=== PATIENT | male | born 1945 | race Caucasian/White ===

== ENCOUNTER 2017-07-29 08:00 | Outpatient (CLI) | payer MEDICARE ==
[2017-07-29 15:35] LABS: BASOPHILS % (AUTO) 0.6 %; EOSINOPHILS # (AUTO) 0.2 10^3/uL (0.0-0.7); HCT - HEMATOCRIT 42.6 % (42.0-52.0); HGB - HEMOGLOBIN 15.1 g/dL (14.0-18.0); LYMPHOCYTES # (AUTO) 2.5 10^3/uL (1.5-3.5); LYMPHOCYTES % (AUTO) 36.9 %; MEAN CORPUSCULAR HGB CONC 35.4 g/dL (32.0-36.0); MEAN CORPUSCULAR VOLUME 98.9 fL (80.0-94.0); MEAN PLATELET VOLUME 9.2 fL (7.4-11.4); MONOCYTES # (AUTO) 0.8 10^3/uL (0.0-1.0); MONOCYTES % (AUTO) 11.8 %; NEUTROPHILS # (AUTO) 3.2 10^3/uL (1.5-6.6); NEUTROPHILS % (AUTO) 47.7 %; NUCLEATED RED BLOOD CELLS AUTO 0.1 /100WBC; RED CELL DISTRIBUTION WIDTH 12.7 % (12.0-15.0); UNCORRECTED WHITE BLOOD COUNT 6.7 x10^3/uL; WHITE BLOOD COUNT 6.7 x10^3/uL (4.8-10.8)
[2017-07-29 15:42] LABS: ALBUMIN/GLOBULIN RATIO 1.6 (1.0-2.2); BILIRUBIN,TOTAL 1.3 mg/dL (0.2-1.0); BUN - BLOOD UREA NITROGEN 20 mg/dL (6-20); CALCIUM 9.4 mg/dL (8.5-10.3); CARBON DIOXIDE - CO2 29 mmol/L (21-32); CHLORIDE 95 mmol/L (101-111); CHOL/HDL RATIO 7.1 (<5.0); CHOLESTEROL 170 mg/dL; CREATININE 0.9 mg/dL (0.6-1.2); GFR - MDRD 83 (>89); GLUCOSE 164 mg/dL (70-100); HDL CHOLESTEROL 24 mg/dL; POTASSIUM 3.9 mmol/L (3.5-5.0); SODIUM 136 mmol/L (135-145); TOTAL PROTEIN 7.7 g/dL (6.7-8.2); TRIGLYCERIDES 486 mg/dL
[2017-07-29 16:16] LABS: LDL CHOLESTEROL,DIRECT 74 mg/dL
[2017-07-29 16:50] LABS: HEMOGLOBIN A1C 0.75 g/dL
== END 2017-07-29 08:01 | disposition home or self-care (01) ==
LOC: LAB.R 08:00
PROVIDERS: ATTEND Physician Assistant Medical
DX: E11.9 Type 2 diabetes mellitus without complications (principal); Z79.899 Other long term (current) drug therapy; I10 Essential (primary) hypertension; Z12.5 Encounter for screening for malignant neoplasm of prostate; G25.81 Restless legs syndrome; E78.2 Mixed hyperlipidemia
CPT/HCPCS: 80053; 80061; 83036; 83721; 85025; G0103; 84153

== ENCOUNTER 2017-08-29 09:06 | Outpatient (CLI) | payer MEDICARE | END 2017-08-29 09:07 | disposition home or self-care (01) | LOC: LAB 09:06 | PROVIDERS: ATTEND Physician Assistant Medical | DX: I10 Essential (primary) hypertension (principal); Z79.899 Other long term (current) drug therapy; G25.81 Restless legs syndrome | CPT/HCPCS: 84443 ==

== ENCOUNTER 2017-11-27 09:00 | Outpatient (CLI) | payer MEDICARE ==
[2017-11-27 13:20] LABS: ALBUMIN 4.2 g/dL (3.2-5.5); ALBUMIN/GLOBULIN RATIO 1.4 (1.0-2.2); ALKALINE PHOSPHATASE 31 IU/L (42-121); ALT ALANINE AMINOTRANSFERASE 99 IU/L (10-60); AST ASPARTATE AMINOTRANSFERASE 47 IU/L (10-42); BILIRUBIN,TOTAL 0.9 mg/dL (0.2-1.0); BUN - BLOOD UREA NITROGEN 17 mg/dL (6-20); CALCIUM 9.1 mg/dL (8.5-10.3); CARBON DIOXIDE - CO2 25 mmol/L (21-32); CHLORIDE 98 mmol/L (101-111); CHOL/HDL RATIO 7.1 (<5.0); CHOLESTEROL 163 mg/dL; GFR - MDRD 74 (>89); GLUCOSE 191 mg/dL (70-100); HDL CHOLESTEROL 23 mg/dL; SODIUM 135 mmol/L (135-145); TOTAL PROTEIN 7.3 g/dL (6.7-8.2)
[2017-11-27 13:31] LABS: HB2 TOTAL 15.8 g/dL; HEMOGLOBIN A1C 0.93 g/dL; HEMOGLOBIN A1C % 7.5 % (4.6-6.2)
[2017-11-27 14:00] LABS: LDL CHOLESTEROL,DIRECT 41 mg/dL; LDLD/HDL RATIO 1.8 (<3.6)
== END 2017-11-27 09:01 | disposition home or self-care (01) ==
LOC: LAB.R 09:00
PROVIDERS: ATTEND Physician Assistant Medical
DX: E78.2 Mixed hyperlipidemia (principal); E11.9 Type 2 diabetes mellitus without complications; Z79.899 Other long term (current) drug therapy
CPT/HCPCS: 80053; 80061; 83036; 83721

== ENCOUNTER 2017-12-04 08:45 | Outpatient (CLI) | payer MEDICARE ==
--- NOTE | 2017-12-04 11:42 | XRAY Report ---
TWO VIEW CHEST: 12/04/2017 CLINICAL INDICATION: Chronic cough. COMPARISON: 05/29/2007. FINDINGS: Frontal and lateral views of the chest demonstrate a normal cardiac silhouette. The lungs are clear. No effusion or pneumothorax is present. IMPRESSION: NORMAL CHEST. TD: 12/04/2017 11:40
== END 2017-12-04 08:46 | disposition home or self-care (01) ==
LOC: DI 08:45
PROVIDERS: ATTEND Physician Assistant Medical
DX: R05 Cough (principal)
CPT/HCPCS: 71046

== ENCOUNTER 2017-12-23 09:41 | Outpatient (CLI) | payer MEDICARE | END 2017-12-23 09:42 | disposition home or self-care (01) | LOC: SC 09:41 | PROVIDERS: ATTEND Internal Medicine Pulmonary Disease | DX: G47.30 Sleep apnea, unspecified (principal); G47.10 Hypersomnia, unspecified; R06.83 Snoring; G47.8 Other sleep disorders | CPT/HCPCS: 99203; G0463; 99212 ==

== ENCOUNTER 2018-03-02 20:16 | Outpatient (CLI) | payer MEDICARE | END 2018-03-02 20:17 | disposition home or self-care (01) | LOC: SC 20:16 | PROVIDERS: ATTEND Internal Medicine Pulmonary Disease | DX: G47.33 Obstructive sleep apnea (adult) (pediatric) (principal); I10 Essential (primary) hypertension | CPT/HCPCS: 95810 ==

== ENCOUNTER 2018-04-14 14:11 | Outpatient (CLI) | payer MEDICARE | END 2018-04-14 14:12 | disposition home or self-care (01) | LOC: SC 14:11 | PROVIDERS: ATTEND Nurse Practitioner Family | DX: G47.33 Obstructive sleep apnea (adult) (pediatric) (principal); G47.61 Periodic limb movement disorder | CPT/HCPCS: 99214; G0463; 99212 ==

== ENCOUNTER 2018-07-08 08:12 | Outpatient (CLI) | payer MEDICARE ==
[2018-07-08 12:31] LABS: BASOPHILS # (AUTO) 0.1 10^3/uL (0.0-0.1); BASOPHILS % (AUTO) 1.1 %; EOSINOPHILS # (AUTO) 0.3 10^3/uL (0.0-0.7); EOSINOPHILS % (AUTO) 4.6 %; HGB - HEMOGLOBIN 15.4 g/dL (14.0-18.0); LYMPHOCYTES # (AUTO) 2.5 10^3/uL (1.5-3.5); LYMPHOCYTES % (AUTO) 37.8 %; MEAN CORPUSCULAR HEMOGLOBIN 35.4 pg (27.0-31.0); MEAN CORPUSCULAR HGB CONC 36.8 g/dL (32.0-36.0); MEAN PLATELET VOLUME 8.9 fL (7.4-11.4); MONOCYTES # (AUTO) 0.7 10^3/uL (0.0-1.0); MONOCYTES % (AUTO) 10.6 %; NEUTROPHILS % (AUTO) 45.9 %; PLT - PLATELET COUNT 227 10^3/uL (130-450); RED BLOOD COUNT 4.36 10^6/uL (4.70-6.10); WHITE BLOOD COUNT 6.5 x10^3/uL (4.8-10.8)
[2018-07-08 12:32] LABS: ALBUMIN 4.5 g/dL (3.2-5.5); ALBUMIN/GLOBULIN RATIO 1.5 (1.0-2.2); ALKALINE PHOSPHATASE 40 IU/L (42-121); ALT ALANINE AMINOTRANSFERASE 50 IU/L (10-60); AST ASPARTATE AMINOTRANSFERASE 31 IU/L (10-42); BUN - BLOOD UREA NITROGEN 21 mg/dL (6-20); CALCIUM 9.2 mg/dL (8.5-10.3); CARBON DIOXIDE - CO2 29 mmol/L (21-32); CHLORIDE 96 mmol/L (101-111); CHOL/HDL RATIO 5.1 (<5.0); CHOLESTEROL 147 mg/dL; CREATININE 0.8 mg/dL (0.6-1.2); GFR - MDRD 95 (>89); GLUCOSE 172 mg/dL (70-100); HDL CHOLESTEROL 29 mg/dL; LDL CHOLESTEROL,CALCULATED 62 mg/dL; LDL/HDL RATIO 2.1 (<3.6); SODIUM 135 mmol/L (135-145); TOTAL PROTEIN 7.5 g/dL (6.7-8.2); VLDL CHOLESTEROL 56 mg/dL
[2018-07-08 13:02] LABS: HB2 TOTAL 16.6 g/dL; HEMOGLOBIN A1C 0.75 g/dL; HEMOGLOBIN A1C % 6.3 % (4.6-6.2)
== END 2018-07-08 08:13 ==
LOC: LAB.R 08:12
PROVIDERS: ATTEND Physician Assistant Medical
DX: Z79.899 Other long term (current) drug therapy (principal); E78.2 Mixed hyperlipidemia; I10 Essential (primary) hypertension; E11.9 Type 2 diabetes mellitus without complications
CPT/HCPCS: 80053; 80061; 83036; 83721; 84443; 85025

== ENCOUNTER 2018-08-26 11:13 | Outpatient (CLI) | payer MEDICARE | END 2018-08-26 11:14 | disposition home or self-care (01) | LOC: SC 11:13 | PROVIDERS: ATTEND Nurse Practitioner Family | DX: G47.33 Obstructive sleep apnea (adult) (pediatric) (principal) | CPT/HCPCS: 99214; G0463; 99212 ==

== ENCOUNTER 2018-09-30 11:18 | Outpatient (CLI) | payer MEDICARE | END 2018-09-30 11:19 | disposition home or self-care (01) | LOC: SC 11:18 | PROVIDERS: ATTEND Nurse Practitioner Family | DX: G47.33 Obstructive sleep apnea (adult) (pediatric) (principal) | CPT/HCPCS: 99214; G0463; 99212 ==

== ENCOUNTER 2018-10-02 08:00 | Outpatient (CLI) | payer MEDICARE ==
[2018-10-02 13:23] LABS: MEAN RETIC VALUE 117.9; RED BLOOD COUNT 4.03 10^6/uL (4.70-6.10)
[2018-10-02 13:49] LABS: ALT ALANINE AMINOTRANSFERASE 54 IU/L (10-60); AST ASPARTATE AMINOTRANSFERASE 27 IU/L (10-42); CHOL/HDL RATIO 4.1 (<5.0); CHOLESTEROL 102 mg/dL; HDL CHOLESTEROL 25 mg/dL; LDL CHOLESTEROL,CALCULATED 27 mg/dL; LDL/HDL RATIO 1.1 (<3.6); VLDL CHOLESTEROL 50 mg/dL
[2018-10-02 18:39] LABS: FERRITIN 44.1 ng/mL (23.9-336.2)
== END 2018-10-02 23:59 | disposition home or self-care (01) ==
LOC: LAB.R 08:00
PROVIDERS: ATTEND Physician Assistant Medical
DX: Z79.899 Other long term (current) drug therapy (principal); E78.2 Mixed hyperlipidemia; D75.89 Other specified diseases of blood and blood-forming organs
CPT/HCPCS: 80061; 82607; 82728; 82746; 83010; 83721; 84450; 84460; 85044; 86880

== ENCOUNTER 2018-10-22 09:35 | Outpatient (CLI) | payer MEDICARE ==
--- NOTE | 2018-10-22 15:44 | XRAY Report ---
Reason: LEG PAIN,BILATERAL Procedure Date: 10/22/2018 Accession Number: [id number] / [id number] Procedure: XR - Hip w/Pelvis 2-3V LT CPT Code: FULL RESULT: EXAM: LEFT HIP AND PELVIS RADIOGRAPHY EXAM DATE: 10/22/2018 09:59 AM. HISTORY: Leg pain, bilateral. COMPARISONS: HIP 2 VIEW LT 09/07/2014 1:13 PM. TECHNIQUE: 1 view of the pelvis and one view of the hip. FINDINGS: Bones: Normal. No fracture or bone lesion. Joints: The bilateral hip joints demonstrate moderate narrowing with degenerative changes. The pubis symphysis, and sacroiliac joints are preserved. Soft Tissues: Normal. No soft tissue swelling. IMPRESSION: Degenerative changes. RADIA
== END 2018-10-22 09:36 | disposition home or self-care (01) ==
LOC: DI 09:35
PROVIDERS: ATTEND Physician Assistant Medical
DX: M16.0 Bilateral primary osteoarthritis of hip (principal)

== ENCOUNTER 2018-11-03 15:02 | Outpatient (CLI) | payer MEDICARE ==
--- NOTE | 2018-11-03 19:16 | MRI Report ---
Reason: LEG PAIN,BILATERAL Procedure Date: 11/03/2018 Accession Number: [id number] / [id number] Procedure: MRI - Lumbar Spine W/O CPT Code: FULL RESULT: EXAM: MRI LUMBAR SPINE WITHOUT CONTRAST EXAM DATE: 11/03/2018 04:10 PM. CLINICAL HISTORY: 73-year-old male. LEG PAIN,BILATERAL. COMPARISON: XR LUMBOSACRAL SPINE 4 VIEWS 04/29/2009 12:22 PM. TECHNIQUE: Multiplanar, multisequence T1-weighted and fluid-sensitive sequences of the lumbar spine from T12 to S1 without contrast. Other: None. FINDINGS: Spinal Canal: The conus terminates at L1-L2. The conus medullaris and cauda equina are unremarkable. Alignment: Mild straightening of the normal lumbar lordosis. Mild rotatory levoscoliosis of the lumbar spine, Yanez angle 5 degrees. Bone Marrow: Five [id number] lumbar vertebral bodies are assumed. No gross fractures or bone lesions. Modic type I degenerative endplate changes with endplate edema at L2-L3, L4-L5, and L5-S1 levels. Modic type II degenerative endplate changes at L3-L4 level Disk Levels/Facets: T12-L1: Unremarkable. L1-L2: Mild disk height loss and desiccation. Mild diffuse disk bulge with superimposed right foraminal protrusion measuring 4 mm. Mild bilateral facet arthropathy. No significant central canal narrowing. Mild right foraminal narrowing. No left foraminal narrowing. L2-L3: Moderate disk height loss and desiccation. Moderate diffuse disk bulge. Mild to moderate bilateral facet arthropathy. Moderate central canal narrowing. Mild to moderate left and mild right foraminal narrowing. L3-L4: Moderate to severe disk height loss and desiccation. Moderate diffuse disk bulge with an annular fissure. Mild bilateral facet arthropathy. Mild to moderate central canal narrowing and moderate right and mild left foraminal narrowing.. L4-L5: Moderate to severe disk height loss and desiccation. Moderate diffuse disk bulge. Mild bilateral facet arthropathy. No significant central canal narrowing. Moderate right and mild to moderate left foraminal narrowing. L5-S1: Moderate disk height loss and desiccation. Mild to moderate diffuse disk bulge with superimposed right foraminal protrusion measuring 4 mm. Mild bilateral facet arthropathy. No significant central canal narrowing. Moderate right foraminal narrowing. Mild to moderate left foraminal narrowing Musculature: Moderate fatty atrophy of the paraspinal musculature. Other: The partially visualized retroperitoneum is unremarkable. IMPRESSION: 1. Moderate multilevel degenerative spondylosis, as detailed above and summarized below. No evidence of acute fracture or malalignment. No cord signal abnormality. 2. Modic type I degenerative endplate changes with endplate edema at L2-L3, L4-L5, and L5-S1 levels. Modic type I changes may represent a source of pain. 3. L1-L2: No significant central canal narrowing. Mild right foraminal narrowing. No left foraminal narrowing. 4. L2-L3: Moderate central canal narrowing. Mild to moderate left and mild right foraminal narrowing. 5. L3-L4: Mild to moderate central canal narrowing . Moderate right and mild left foraminal narrowing. Recommend correlation for right L3 radicular symptoms. 6. L4-L5: No significant central canal narrowing. Moderate right and mild to moderate left foraminal narrowing. Recommend correlation for right L4 radicular symptoms. 7. L5-S1: No significant central canal narrowing. Moderate right foraminal narrowing. Mild to moderate left foraminal narrowing. Recommend correlation for right L5 radicular symptoms. Comment: The following findings are so common in adults without low back pain that while we report their presence, they must be interpreted with caution and in the context of the clinical situation. (Reference Alokk et al, Spine 2001) Prevalence of findings in patients without low back pain: Disk degeneration (any evidence): 92% Disk desiccation/T2 signal loss: 83% Disk height loss: 56% Disk bulge: 64% Disk protrusion: 32% Annular tear/high intensity zone: 38% RADIA
== END 2018-11-03 15:03 | disposition home or self-care (01) ==
LOC: DI 15:02
PROVIDERS: ATTEND Physician Assistant Medical
DX: M51.36 Other intervertebral disc degeneration, lumbar region (principal); M48.061 Spinal stenosis, lumbar region without neurogenic claudication; M47.9 Spondylosis, unspecified
CPT/HCPCS: 72148

== ENCOUNTER 2018-11-07 08:00 | Outpatient (CLI) | payer MEDICARE ==
[2018-11-07 13:18] LABS: HB2 TOTAL 14.8 g/dL; HEMOGLOBIN A1C 0.77 g/dL; HEMOGLOBIN A1C % 6.9 % (4.6-6.2)
== END 2018-11-07 23:59 | disposition home or self-care (01) ==
LOC: LAB.R 08:00
PROVIDERS: ATTEND Physician Assistant Medical
DX: E11.9 Type 2 diabetes mellitus without complications (principal); Z79.899 Other long term (current) drug therapy
CPT/HCPCS: 82947; 83036

== ENCOUNTER 2018-12-01 13:16 | Outpatient (CLI) | payer MEDICARE | END 2018-12-01 13:17 | disposition home or self-care (01) | LOC: SC 13:16 | PROVIDERS: ATTEND Nurse Practitioner Family | DX: G47.33 Obstructive sleep apnea (adult) (pediatric) (principal) | CPT/HCPCS: 99214; G0463; 99212 ==

== ENCOUNTER 2018-12-25 08:50 | Outpatient (CLI) | payer MEDICARE | END 2018-12-25 08:51 | disposition home or self-care (01) | LOC: SC 08:50 | PROVIDERS: ATTEND Nurse Practitioner Family | DX: G47.33 Obstructive sleep apnea (adult) (pediatric) (principal) | CPT/HCPCS: 99214; G0463; 99212 ==

== ENCOUNTER 2019-06-12 07:57 | Outpatient (CLI) | payer MEDICARE ==
[2019-06-12 08:23] LABS: HB2 TOTAL 14.6 g/dL; HEMOGLOBIN A1C 0.73 g/dL; HEMOGLOBIN A1C % 6.7 % (4.6-6.2)
[2019-06-12 08:31] LABS: BUN - BLOOD UREA NITROGEN 20 mg/dL (6-20); CARBON DIOXIDE - CO2 29 mmol/L (21-32); CHLORIDE 102 mmol/L (101-111); CHOL/HDL RATIO 2.8 (<5.0); CHOLESTEROL 77 mg/dL; CREATININE 0.9 mg/dL (0.6-1.2); GFR - MDRD 83 (>89); GLUCOSE 185 mg/dL (70-100); HDL CHOLESTEROL 28 mg/dL; LDL CHOLESTEROL,CALCULATED 26 mg/dL; LDL/HDL RATIO 0.9 (<3.6); SODIUM 139 mmol/L (135-145); VLDL CHOLESTEROL 23 mg/dL
== END 2019-06-12 07:58 | disposition home or self-care (01) ==
LOC: LAB 07:57
PROVIDERS: ATTEND Family Medicine
DX: E78.2 Mixed hyperlipidemia (principal); E11.9 Type 2 diabetes mellitus without complications; I10 Essential (primary) hypertension
CPT/HCPCS: 36415; 80048; 80061; 83036; 83721

== ENCOUNTER 2021-07-10 15:45 | Outpatient (CLI) | payer MEDICARE ==
[2021-07-10 18:35] LABS: CALCIUM 9.1 mg/dL (8.5-10.3); CREATININE 0.9 mg/dL (0.6-1.2); POTASSIUM 4.3 mmol/L (3.5-5.0); URIC ACID 4.3 mg/dL (2.6-7.2)
== END 2021-07-10 23:59 | disposition home or self-care (01) ==
LOC: LAB.WCP 15:45
PROVIDERS: ATTEND Family Medicine
DX: M79.676 Pain in unspecified toe(s) (principal)
CPT/HCPCS: 36415; 80048; 84550

== ENCOUNTER 2023-07-19 08:13 | Outpatient (CLI) | payer MEDICARE ==
[2023-07-19 08:38] LABS: BASOPHILS # (AUTO) 0.1 10^3/uL (0.0-0.1); BASOPHILS % (AUTO) 1.2 %; EOSINOPHILS # (AUTO) 0.2 10^3/uL (0.0-0.7); EOSINOPHILS % (AUTO) 3.4 %; HCT - HEMATOCRIT 44.3 % (42.0-52.0); HGB - HEMOGLOBIN 15.9 g/dL (14.0-18.0); LYMPHOCYTES # (AUTO) 2.1 10^3/uL (1.5-3.5); LYMPHOCYTES % (AUTO) 32.1 %; MEAN CORPUSCULAR HEMOGLOBIN 33.8 pg (27.0-31.0); MEAN CORPUSCULAR HGB CONC 35.9 g/dL (32.0-36.0); MEAN CORPUSCULAR VOLUME 94.1 fL (80.0-94.0); MEAN PLATELET VOLUME 10.1 fL (7.4-11.4); MONOCYTES # (AUTO) 0.8 10^3/uL (0.0-1.0); MONOCYTES % (AUTO) 12.6 %; NEUTROPHILS # (AUTO) 3.4 10^3/uL (1.5-6.6); NEUTROPHILS % (AUTO) 50.3 %; PLT - PLATELET COUNT 195 10^3/uL (130-450); RED BLOOD COUNT 4.71 10^6/uL (4.70-6.10); RED CELL DISTRIBUTION WIDTH 12.9 % (12.0-15.0); WHITE BLOOD COUNT 6.7 x10^3/uL (4.8-10.8)
[2023-07-19 09:00] LABS: ALBUMIN 4.7 g/dL (3.2-5.5); ALBUMIN/GLOBULIN RATIO 1.8 (1.0-2.2); ALKALINE PHOSPHATASE 51 IU/L (42-121); ALT ALANINE AMINOTRANSFERASE 25 IU/L (10-60); AST ASPARTATE AMINOTRANSFERASE 17 IU/L (10-42); BILIRUBIN,TOTAL 0.9 mg/dL (0.2-1.0); BUN - BLOOD UREA NITROGEN 22 mg/dL (6-20); CALCIUM 9.9 mg/dL (8.5-10.3); CARBON DIOXIDE - CO2 29 mmol/L (21-32); CHLORIDE 104 mmol/L (101-111); CHOL/HDL RATIO 2.9 (<5.0); CHOLESTEROL 87 mg/dL; GFR - MDRD 72 (>89); GLUCOSE 182 mg/dL (74-104); HDL CHOLESTEROL 30 mg/dL; LDL CHOLESTEROL,CALCULATED 20 mg/dL; LDL/HDL RATIO 0.7 (<3.6); POTASSIUM 4.6 mmol/L (3.5-4.5); SODIUM 139 mmol/L (135-145); TOTAL PROTEIN 7.3 g/dL (6.4-8.9); TRIGLYCERIDES 186 mg/dL (48-352); VLDL CHOLESTEROL 37 mg/dL
[2023-07-19 10:03] LABS: ESTIMATED AVERAGE GLUCOSE 160 mg/dL (70-100); HEMOGLOBIN A1c% 7.2 % (4.27-6.07)
[2023-07-19 13:24] LABS: THYROID STIMULATING HORMONE 3.44 uIU/mL (0.34-5.60)
== END 2023-07-19 08:14 | disposition home or self-care (01) ==
LOC: LAB 08:13
PROVIDERS: ATTEND Family Medicine
DX: I10 Essential (primary) hypertension (principal); E66.3 Overweight; E11.9 Type 2 diabetes mellitus without complications; N40.0 Benign prostatic hyperplasia without lower urinary tract symptoms; E78.2 Mixed hyperlipidemia
CPT/HCPCS: 36415; 80053; 80061; 83036; 83721; 84443; 85025

== ENCOUNTER 2023-11-28 10:07 | Outpatient (CLI) | payer MEDICARE ==
--- NOTE | 2023-11-28 10:42 | Sleep Patient Instructions ---
Sleep Center Visit Summary - Patient Visit Information Reason for Visit: Initial consultation, reestablish care, - Patient Instructions Additional Instructions: You will be completing a sleep study, either an in-lab polysomnography (PSG) or home sleep study (HST). You will follow-up in the sleep care office after the sleep study is completed to hear the results and talk about therapy, if needed. You will be called by our office staff to schedule this appointment, but you may contact us with any questions. - Clinic Information Contact: [facility] [address] [place] [address] [email or web address] T: [phone]
--- NOTE | 2023-11-28 10:48 | SLEEP CARE CONSULTATION ---
Information from patient questionnaire entered by Janette Mackenzie. I have reviewed and concur with the information entered by Janette Mackenzie. This document represents the service I personally performed and the decisions made by me, Yuliya Guillermo ARNP. History of Present Illness Service Date and Time: 11/28/2023 1007 Reason for Visit: New patient, Previously diagnosed sleep apnea, Re-establish care Chief Complaint: reports: Snoring, Excessive daytime sleepiness, Observed pauses in breathing, Frequent awakenings at night, Other (UPDATE SUPPLIES) Date of Onset: 20YRS Usual bedtime: 930PM Time it takes to fall asleep: 5MINS Snores at night: Yes Observed to quit breathing while asleep: Yes Sleeps alone due to snoring: No Number of times waking at night: 6+ Reasons for waking at night: reports: Choking, Snoring, Gasping for air (occasionally), Bathroom, Other (MOVEMENT, NOISE) Toss, Turn, or Twitch while sleeping: Yes Recalls having dreams: Yes Usually gets out of bed at: 5AM OR SO Feels refreshed in the morning: Yes Morning headache: No Sleepy or fatigued during the day: Yes Ever fallen asleep while driving: Yes (drowsy driving, no accidents) Takes day naps: No Dreams during day naps: Yes (unintentional naps if sitting down; 3 times a day, 5 mins or more) Prior sleep studies: Yes Year and Where: 2017 [facility] Additional HPI information: EDUARDO NUGENT was previously diagnosed to have moderate, AHI 17.6, obstructive sleep apnea-hypopnea syndrome in sleep study dated 03/02/2018 at [facility] and comes in today for CPAP therapy. His current complaints are snoring, excessive daytime sleepiness, observed pauses in breathing and frequent night awakenings. He has not been using his CPAP because it was so noisy, it disturbed his . He has been trying to sleep mostly on his sides but feels he could use to re-start using his CPAP. - Parasomnia Symptoms Ever been unable to move upon waking from sleep: No Walks in sleep: No Talks in sleep: Yes Ever acted out dreams in sleep: No Ever felt weak in the knees when startled or emotional: No Bothered by creepy, crawly, restless sensations in legs: Yes Problems with memory or concentration: No CPAP Compliance Data Compliance data discussion: He had a Rosa machine that may be a Dreamstation. He received a replacement in a box because of the recall but has not opened it. He has not been using a CPAP in a couple years. Subjective Initial Da[place]hin Sleepiness Scale score: 11 (11/26/23) Past Medical History Past Medical History: reports: Hypertension, Diabetes, Arthritis, Other (RESTLESS LEGS, BACKACHE; leg neuropathy) Social History The patient's occupation is a RE. Patient is and lives in [place]. Have you smoked in the past 12 months: No Alcohol use: Yes Alcohol amount and frequency: 2 BEERS MONTH Caffeine use: Yes Caffeine amount and frequency: 1 CUP AVERAGE EACH DAY Family History Family history of sleep disordered breathing: No Family Hx Sleep Apnea: Father: Snoring Allergies and Home Medications Known drug allergies: Yes ( LISTED ) Drug allergies reviewed: Yes Home medication list reviewed: Yes Allergy and home medication list: Allergies Penicillins Allergy (Mild, Verified 11/26/23 15:44) Unknown BAYLEE Inhibitors Allergy (Verified 11/28/23 10:36) Unknown niacin Allergy (Verified 11/28/23 10:36) Unknown Home Medications Chlorthalidone 25 mg ORAL DAILY 02/03/15 [History] Losartan [Cozaar] 25 mg ORAL DAILY 02/03/15 [History] Metoprolol Tartrate 12.5 mg ORAL BID 02/03/15 [History] Potassium Chloride 10 meq ORAL DAILY 02/03/15 [History] Pramipexole [Mirapex] 0.5 mg ORAL DAILY 02/03/15 [History] Pravastatin Sodium 10 mg ORAL DAILY 02/03/15 [History] metFORMIN [Glucophage] 1,000 mg ORAL BID 02/03/15 [History] Review of Systems Cardiovascular: reports: high blood pressure, leg or foot swelling Respiratory: reports: chronic cough Gastrointestinal: reports: heartburn, diarrhea Urinary: reports: frequency Psychiatric: denies: anxiety, depression Ear/Nose/Throat: reports: nasal congestion, sinus problems, dry mouth/throat, tonsillectomy Endocrine: reports: sluggishness, increased urination Musculoskeletal: reports: joint pain, back pain, joint swelling, muscle pain or cramping Immunologic: reports: sneezing, allergies to food or environment Physical Exam Vital signs obtained and entered by: YULIYA FLOREZ Blood Pressure: 152/68 Cuff size: regular (left arm) Heart Rate: 49 O2 Saturation: 99 Height: 6 ft 1 in Weight: 179 lb 6.4 oz Body Mass Index: 23.6 BMI Classification: Normal Neck circumference: 15 (inches) Mouth and throat: narrow oropharynx Soft palate: long Hard palate: normal Uvula: normal Uvula visualization: 25% Mallampati Class III Tongue: normal in size Tonsils: absent bilaterally Neck: normal w/o lymphadenopathy or thyromegaly Heart: regular rate and rhythm Lungs: clear bilaterally Impression and Plan 1. Obstructive Sleep Apnea-Hypopnea Syndrome, moderate, previously diagnosed and as suggested by a history of loud and irregular snoring, observed cessation of breath while asleep, gasping or choking in sleep, frequent awakening during the night, and excessive daytime sleepiness. Patient needs to be on a CPAP with that set at 14-17 cm H2O. He states he has not been using it for a few years because it bothered his at night. He returns because he would like to see if he needs to be back on the CPAP. I recommend proceeding to polysomnography to confirm the diagnosis and to assess severity. I obtained agreement to proceed. The pathophysiology of obstructive sleep apnea-hypopnea syndrome was discussed with the patient and health risks of cardiovascular and cerebrovascular disease if not treated. Risks of drowsy driving discussed in detail and patient advised to avoid long distance driving and to picker/puller at the first sign of drowsiness. Patient agreed to plan. * Schedule polysomnography * Avoid long distance driving or driving when feeling sleepy. * Avoid alcohol, sedative and muscle relaxant around bedtime. * Attempt to lose weight. * Review instructions provided by trained office staff on how to prepare for the sleep study. * Return for follow-up after sleep study completed. Follow up with Sleep Care in: other (after sleep study) Plan: PSG/HST to reverify Visit Type: In Office Time Spent with Patient (minutes): 36 Provider Statement: I spent 100% of the Face to Face Visit with the patient with greater than 50% spent counseling the patient and coordination of care.
[2023-11-28 10:51] VITALS: BP 152/68; O2SAT 99
== END 2023-11-28 10:08 | disposition home or self-care (01) ==
LOC: SC 10:07
PROVIDERS: ATTEND Nurse Practitioner Family
DX: G47.33 Obstructive sleep apnea (adult) (pediatric) (principal)
CPT/HCPCS: 99203; G0463; 99212

== ENCOUNTER 2023-12-16 19:18 | Outpatient (CLI) | payer MEDICARE | END 2023-12-16 19:19 | disposition home or self-care (01) | LOC: SC 19:18 | PROVIDERS: ATTEND Nurse Practitioner Family | DX: G47.33 Obstructive sleep apnea (adult) (pediatric) (principal); G47.61 Periodic limb movement disorder; E11.9 Type 2 diabetes mellitus without complications; I10 Essential (primary) hypertension | CPT/HCPCS: 95810 ==

== ENCOUNTER 2023-12-24 10:06 | Outpatient (CLI) | payer MEDICARE ==
--- NOTE | 2023-12-24 10:53 | Sleep Patient Instructions ---
Sleep Center Visit Summary - Patient Visit Information Reason for Visit: Sleep study follow-up - Patient Instructions Additional Instructions: You are being re-started on CPAP therapy with pressure setting at 10-14 cmH2O. You may call the office with any concerns about pressure feeling too low or too much for adjustment, if needed. You should contact DME supplier for any questions or concerns about mask or equipment. Please call office to schedule a follow up appointment in the sleep care office in 1-2 months. - Clinic Information Contact: [facility] [address] [place] [address] [email or web address] T: [phone]
--- NOTE | 2023-12-24 10:59 | SLEEP CARE CONSULTATION ---
Information from patient questionnaire entered by Nils Zhang. I have reviewed and concur with the information entered by Nils Zhang. This document represents the service I personally performed and the decisions made by , Yuliya Guillermo ARNP. History of Present Illness Service Date and Time: 12/24/2023 1006 Initial Warren Sleepiness Scale score: 11 (11/26/23) Current Warren Sleepiness Scale score: 15 Additional HPI information: EDUARDO ZHANG returns for follow up and results of the recently performed polysomnography. I explained the pathophysiology behind obstructive sleep apnea. We then spent quite a bit of time discussing different treatment options. For mild obstructive sleep apnea, surgery and oral appliance are alternatives to nasal CPAP therapy but in moderate or severe cases, nasal CPAP is the most effective a nd reliable treatment. I reviewed the impact of weight changes on sleep apnea and strongly recommended losing weight. After some discussion, the patient opted to go with the nasal CPAP therapy. His Dreamstation 2 will be set at nasal autoCPAP set at 10-14 cmH20. A manual titration study will be ordered if unable to find optimal pressure with office adjustments. Patient counseled not drink alcohol less than 4 hours before bedtime as it can increase snoring and apnea. Patient was cautioned about risks of drowsy driving until sleepiness symptoms resolve. Patient denies drowsy driving. Sleep Study - Results Type of Sleep Study: Polysomnography Prior sleep studies: Yes Year and Where: 2017 [facility] and 2023 [facility] Polysomnography/Home Sleep Study results: IMPRESSION: The quality of the study is good. The patient had minimally reduced sleep efficiency. The sleep architecture was abnormal for sleep fragmentation and reduced amount of time spent in REM and slow wave sleep (N3). Respiratory monitoring showed moderate obstructive sleep apnea-hypopnea (AHI = 19.9) associated with frequent arousals, oxyhemoglobin desaturation and no significant hypoxia (ramón oxygen saturation of 90%). The respiratory events occurred predominantly during supine sleep (supine AHI = 36.7; non-supine = 5.25). Snore was infrequent and light to moderate in intensity. There was moderate periodic leg movement of sleep contributing to the sleep fragmentation. Cardiac rhythm was normal sinus rhythm without significant arrhythmia. No abnormal behavior (parasomnia) observed during the night Allergies and Home Medications Known drug allergies: Yes (as listed) Drug allergies reviewed: Yes Home medication list reviewed: Yes (no changes) Allergy and home medication list: Allergies Penicillins Allergy (Mild, Verified 11/26/23 15:44) Unknown BAYLEE Inhibitors Allergy (Verified 11/28/23 10:36) Unknown niacin Allergy (Verified 11/28/23 10:36) Unknown Review of Systems Review of systems same as previous: Yes (no changes) Physical Exam Vital signs obtained and entered by: Yuliya Collins NP Blood Pressure: 118/55 Cuff size: regular (right arm) Heart Rate: 50 O2 Saturation: 99 Height: 6 ft 1 in Weight: 177 lb 9.6 oz Body Mass Index: 23.4 BMI Classification: Normal Impression and Plan 1. Obstructive Sleep Apnea-Hypopnea Syndrome, moderate, with lowest oxygen saturation of 90%. Obviously this is the cause of the patients symptoms of unrefreshed sleep, and excessive daytime sleepiness. Positive pressure therapy could benefit hypertension, diabetes and RLS. As mentioned above, the patient will be re-started on nasal autoCPAP therapy with pressure set at 10-14 cmH2O. Compliance guidelines also reviewed. A copy of compliance guidelines will be given for reference at check out. Because the apnea is more severe supine, I instructed to avoid sleeping supine using pillow positioning when unable to use CPAP. He was concerned about his mask, he had been using a fullface mask in the past and what he has is very old. I fit him to an AirFit F20, large size cushion with a good fit. He felt like it was comfortable and would do the job. I will also add a mask fitting and update his supply prescription in case he does not tolerate the full face mask again. 2. Periodic limb movement, moderate, that did contribute to the fragmentation of patients sleep. Periodic limb movement of sleep (PLMS) is characterized by episodes of repetitive limb movements that occur during sleep and usually involve the lower limbs. The etiology is unknown. Sleep hygiene methods can also improve sleep as well as lifestyle changes such as regular exercise. Patient was advised that no treatment is needed at this time. If symptoms increase, then further evaluation is indicated. * Restart Nasal auto CPAP therapy, pressure at 10-14 cmH2O. * Update supply prescription * Avoid alcohol consumption near bedtime. * Avoid supine sleep when not using CPAP. * The patient is again cautioned about driving until sleepiness completely resolves. * Return in 1-2 months in sleep care office. I will assess response to therapy and compliance at that time. Mask provided: Yes Counseling Topics: Weight control Prescriptions: Device supplies (with mask refitting) Follow up with Sleep Care in: 1-2 months Visit Type: In Office Time Spent with Patient (minutes): 25 Provider Statement: I spent 100% of the Face to Face Visit with the patient with greater than 50% spent counseling the patient and coordination of care.
[2023-12-24 11:01] VITALS: BP 118/55; O2SAT 99
== END 2023-12-24 10:07 | disposition home or self-care (01) ==
LOC: SC 10:06
PROVIDERS: ATTEND Nurse Practitioner Family
DX: G47.33 Obstructive sleep apnea (adult) (pediatric) (principal); G47.61 Periodic limb movement disorder
CPT/HCPCS: 99213; G0463; 99212

== ENCOUNTER 2024-02-12 09:55 | Outpatient (CLI) | payer MEDICARE ==
--- NOTE | 2024-02-12 10:32 | Sleep Patient Instructions ---
Sleep Center Visit Summary - Patient Visit Information Reason for Visit: 6-week follow-up - Patient Instructions Additional Instructions: You were here for follow up of CPAP therapy. You will be continued on CPAP therapy with pressure at 10-14 cmH2O. You should follow up with sleep care in 1-2 months. You may contact us sooner for any questions or concerns. - Clinic Information Contact: [facility] [address] [place] [id number] [email or web address] T: [phone]
--- NOTE | 2024-02-12 10:36 | SLEEP CARE CONSULTATION ---
Information from patient questionnaire entered by Janette Mackenzie. I have reviewed and concur with the information entered by Janette Mackenzie. This document represents the service I personally performed and the decisions made by me, Yuliya Guillermo ARNP. History of Present Illness Service Date and Time: 02/12/2024954 Previous diagnosis: Moderate, Obstructive Sleep Apnea-Hypopnea Syndrome AHI: 19.9 (2023) Reason for follow up: other (6 WEEK F/U MACHINE NEEDED) Equipment type: CPAP (Dreamstation 2) Equipment obtained from: [employer] (getting supplies) Mask style: Full face Mask brand: Resmed (AirFit F20, large cushion) Backup mask available: No (will keep old mask when replaced) Last cushion change: 6 weeks Prior sleep studies: Yes Year and Where: 2017 [facility] and 2023 [facility] Type of Sleep Study: Polysomnography HPI additional information: EDUARDO NUGENT was diagnosed to have moderate, AHI 19.9, obstructive sleep apnea- hypopnea syndrome and returned today for CPAP therapy six week follow-up. Sleep Study - Results Type of Sleep Study: Polysomnography Prior sleep studies: Yes Year and Where: 2017 [facility] and 2023 [facility] CPAP Compliance Data - Data Reviewed with Patient Average duration of nightly device use: 2 hours 58 minutes Compliance rate %: 10 ( days used) Current pressure setting (cmH2O): 10-14 Average residual AHI: 19.9 Central apnea: 1.1 Obstructive apnea: 3.1 Hypopnea: 15.7 Average large leak: 1 hrs, 43 mins Subjective Missed days of use due to: reports: travel Patient concerns: reports: dry mouth, nose, throat (dry mouth). denies: aerophagia, mask discomfort, air blowing in eyes, mask leak noise, condensation in mask/hose, nasal congestion, epistaxis Observed to snore while using device: No Current pressure setting perceived as: comfortable On therapy, patient: reports: sleeping better, awakening more refreshed, more rested overall. denies: drowsiness while driving Initial [place] Sleepiness Scale score: 11 (11/26/23) Current [place] Sleepiness Scale score: 10 (02/12/24) Allergies and Home Medications Known drug allergies: Yes (as listed) Drug allergies reviewed: Yes Home medication list reviewed: Yes (no changes) Allergy and home medication list: Allergies Penicillins Allergy (Mild, Verified 02/12/24 08:34) Unknown BAYLEE Inhibitors Allergy (Verified 02/12/24 08:34) Unknown niacin Allergy (Verified 02/12/24 08:34) Unknown Review of Systems Review of systems same as previous: Yes (NO CHANGE) Physical Exam Vital signs obtained and entered by: JANETTE Miranda MA Blood Pressure: 139/60 (LEFT ARM) Cuff size: regular Heart Rate: 46 O2 Saturation: 100 Height: 6 ft 1 in Weight: 177 lb Body Mass Index: 23.3 BMI Classification: Normal Impression and Plan 1. Obstructive Sleep Apnea-Hypopnea Syndrome, moderate, with poor treatment compliance and fair apnea control with elevated residual AHI. On CPAP therapy, the patient has better sleep quality and is more rested overall. His compliance has been affected by him traveling. He states the mask we fit him to at the office last time is comfortable and he is going to start using his CPAP more. His residual AHI is elevated with a hypopnea index at 15.7. His central index is at 1.1 and obstructive index at 3.1 with a large leak at 1 hour and 43 minutes. I think his residual AHI is elevated falsely due to the average large leak being so high. I discussed with him making sure all his connections are not leaking and that he gets a good seal on his mask to reduce leaks. I will make no pressure changes today but have him come back in 1 to 2 months to recheck compliance. Patient's apnea severity and rationale for treatment to reduce apnea, improve sleep quality and reduce cardiovascular and cerebrovascular events was reviewed. I also reviewed the benefit of consistent device use of CPAP for hypertension, diabetes and RLS. * Continue auto CPAP pressure at 10-14 cmH2O * Notify me if snoring with mask or feeling that the pressure is too much or too little * Attempt to lose weight * Call this office if any problems using CPAP * Return for follow up in 1-2 months, or sooner if concerns arise Counseling Topics: Spare mask Follow up with Sleep Care in: 1-2 months Visit Type: In Office Time Spent with Patient (minutes): 16 Provider Statement: I spent 100% of the Face to Face Visit with the patient with greater than 50% spent counseling the patient and coordination of care.
[2024-02-12 10:53] VITALS: BP 139/60; O2SAT 100
== END 2024-02-12 09:56 | disposition home or self-care (01) ==
LOC: SC 09:55
PROVIDERS: ATTEND Nurse Practitioner Family
DX: G47.33 Obstructive sleep apnea (adult) (pediatric) (principal)
CPT/HCPCS: 99212; G0463

== ENCOUNTER 2024-04-02 08:50 | Outpatient (CLI) | payer MEDICARE ==
[2024-04-02 09:13] LABS: CALCIUM 9.7 mg/dL (8.5-10.3); CREATININE 0.9 mg/dL (0.6-1.3); POTASSIUM 4.2 mmol/L (3.5-4.5)
[2024-04-02 09:24] LABS: ESTIMATED AVERAGE GLUCOSE 151 mg/dL (70-100); HEMOGLOBIN A1c% 6.9 % (4.27-6.07)
== END 2024-04-02 08:51 | disposition home or self-care (01) ==
LOC: LAB 08:50
PROVIDERS: ATTEND Family Medicine
DX: E11.65 Type 2 diabetes mellitus with hyperglycemia (principal)
CPT/HCPCS: 36415; 80048; 83036

== ENCOUNTER 2024-04-15 09:32 | Outpatient (CLI) | payer MEDICARE ==
--- NOTE | 2024-04-15 09:53 | Sleep Patient Instructions ---
Sleep Center Visit Summary - Patient Visit Information Reason for Visit: 2-month follow-up - Patient Instructions Additional Instructions: You were here for follow up of CPAP therapy. You will be continued on CPAP therapy with pressure at 12-15 cmH2O. I have given you a nasal mask, the Mirage FX, wide cushion, to try at home. You should follow up with sleep care in 3 months. You may contact us sooner for any questions or concerns. - Clinic Information Contact: [facility] [address] [place] [address] [email or web address] T: [phone]
--- NOTE | 2024-04-15 09:59 | SLEEP CARE CONSULTATION ---
Information from patient questionnaire entered by Janette Mackenzie. I have reviewed and concur with the information entered by Janette Mackenzie. This document represents the service I personally performed and the decisions made by me, Yuliya Guillermo ARNP. History of Present Illness Service Date and Time: 04/15/2024 09 Previous diagnosis: Moderate, Obstructive Sleep Apnea-Hypopnea Syndrome AHI: 19.9 (on 12/16/23) Reason for follow up: other (2 MONTH F/U ) Equipment type: CPAP (Dreamstation 2) Equipment obtained from: [employer] (getting supplies) Mask style: Full face Backup mask available: Yes Last cushion change: 1-2 months Prior sleep studies: Yes Year and Where: 2017 [facility] and 2023 [facility] Type of Sleep Study: Polysomnography HPI additional information: EDUARDO NUGENT was diagnosed to have moderate, AHI 19.9, obstructive sleep apnea- hypopnea syndrome and returned today for CPAP therapy two month follow-up. Sleep Study - Results Type of Sleep Study: Polysomnography Prior sleep studies: Yes Year and Where: 2017 [facility] and 2023 [facility] CPAP Compliance Data - Data Reviewed with Patient Average duration of nightly device use: 4 hours 8 minutes Compliance rate %: 40 (02/15/24-04/14/24; 60/45 days used) Current pressure setting (cmH2O): 12-15 (avg 12) Average residual AHI: 16.3 Central apnea: 0.1 Obstructive apnea: 1.7 Hypopnea: 14.5 Average large leak: 2 hours 49 mins Subjective Missed days of use due to: reports: mask issues, travel Patient concerns: reports: dry mouth, nose, throat (some dry mouth). denies: aerophagia, mask discomfort, air blowing in eyes, mask leak noise, condensation in mask/hose, nasal congestion, epistaxis Observed to snore while using device: No Current pressure setting perceived as: comfortable On therapy, patient: reports: sleeping better, awakening more refreshed, being more awake and alert during the day, more rested overall. denies: drowsiness while driving Initial Horton Sleepiness Scale score: 11 (11/26/23) Current Horton Sleepiness Scale score: 14 (04/15/24) Allergies and Home Medications Known drug allergies: Yes (as listed) Drug allergies reviewed: Yes Home medication list reviewed: Yes (no changes) Allergy and home medication list: Allergies Penicillins Allergy (Mild, Verified 04/13/24 10:53) Unknown BAYLEE Inhibitors Allergy (Verified 04/13/24 10:53) Unknown niacin Allergy (Verified 04/13/24 10:53) Unknown Review of Systems Review of systems same as previous: Yes (no changes) Physical Exam Vital signs obtained and entered by: JANETTE Miranda MA Blood Pressure: 150/62 (RIGHT ARM) Cuff size: regular Heart Rate: 64 O2 Saturation: 99 Height: 6 ft 1 in Weight: 168 lb Weight change since last visit: 9 lb loss Body Mass Index: 22.1 BMI Classification: Normal Impression and Plan 1. Obstructive Sleep Apnea-Hypopnea Syndrome, moderate, with fair treatment compliance and fair apnea control with elevated residual AHI. He has increased his use by 30% is happy with the current pressure setting. He says the pressure is comfortable and he is sleeping well. Residual AHI is still elevated but he has an almost 3 hour large leak average which may be falsely elevating is hypopnea index. He is using a full face mask and he says he is trying to tighten it to reduce leaking. He expressed an interest in a nasal cushion and I fit him to a [employer] Mirage FX, wide cushion, in the office to try at home. If th is works better for him, we will change his mask cushion type. I will have him return in 3 months to recheck compliance. Patient's apnea severity and rationale for treatment to reduce apnea, improve sleep quality and reduce cardiovascular and cerebrovascular events was reviewed. I also reviewed the benefit of consistent device use of CPAP for hypertension, diabetes, RLS. * Continue auto CPAP pressure at 12-15 cmH2O * Mirage FX, wide cushion fitted and sample given to patient to try at home * Notify me if snoring with mask or feeling that the pressure is too much or too little * Call this office if any problems using CPAP * Return for follow up in 3 months, or sooner if concerns arise Mask provided: Yes Counseling Topics: Spare mask, Weight control Follow up with Sleep Care in: 3 months Visit Type: In Office Time Spent with Patient (minutes): 23 Provider Statement: I spent 100% of the Face to Face Visit with the patient with greater than 50% spent counseling the patient and coordination of care.
[2024-04-15 10:09] VITALS: BP 150/62; O2SAT 99
== END 2024-04-15 09:33 | disposition home or self-care (01) ==
LOC: SC 09:32
PROVIDERS: ATTEND Nurse Practitioner Family
DX: G47.33 Obstructive sleep apnea (adult) (pediatric) (principal)
CPT/HCPCS: 99213; G0463; 99212

== ENCOUNTER 2024-05-13 11:51 | Outpatient (CLI) | payer MEDICARE ==
[2024-05-13 12:13] LABS: FECAL OCCULT BLOOD (FIT) NEGATIVE (NEGATIVE)
== END 2024-05-13 11:52 | disposition home or self-care (01) ==
LOC: LAB.R 11:51
PROVIDERS: ATTEND Family Medicine
DX: R63.4 Abnormal weight loss (principal)
CPT/HCPCS: 82274

== ENCOUNTER 2024-05-13 11:58 | Outpatient (CLI) | payer MEDICARE ==
--- NOTE | 2024-05-13 14:20 | XRAY Report ---
PROCEDURE: Chest 2V INDICATIONS: ABNORMAL WEIGHT LOSS TECHNIQUE: 2 views of the chest were acquired. COMPARISON: Chest x-ray 12/04/2017 FINDINGS: Surgical changes and devices: None. Lungs and pleura: No pleural effusions or pneumothorax. Lungs are clear. Mediastinum: Mediastinal contours appear normal. Heart size is normal. No anterior mediastinal mass . Bones and chest wall: No suspicious bony lesions. Diffuse osseous demineralization. Overlying soft tissues appear unremarkable. IMPRESSION: No acute cardiopulmonary process. Reviewed by: Barber Whitaker MD on 05/13/2024 2:19 PM PDT Approved by: Barber Whitaker MD on 05/13/2024 2:19 PM PDT Station ID: [id number]
== END 2024-05-13 11:59 | disposition home or self-care (01) ==
LOC: DI 11:58
PROVIDERS: ATTEND Family Medicine
DX: R63.4 Abnormal weight loss (principal)